=== PATIENT | male | born 1955 | race Hispanic/Latino ===

== ENCOUNTER 2017-10-02 07:11 | Day surgery (SDC) | payer OTHER ==
[~2017-10-02] VITALS: Ht 180.3 cm; Wt 83.2 kg
[~2017-10-02 07:11] MED LIST: AEC81 PO; ATOR40TA71 PO; LEVO125T11 PO; METF500T6 PO; OLOPATADINE OPTH OP; SITA100T12 PO; SODIUM CHLORIDE 0.9% 1000ML 1,000 ML IV ONE
[2017-10-02 07:42] VITALS: BP 110/72
[2017-10-02] MEDS ORDERED: PROPOFOL 10 MG/ML 20ML VIAL IV ONE (10:12)
[2017-10-02 10:31] VITALS: BP 88/44
== END 2017-10-02 11:00 | disposition home or self-care (01) ==
LOC: ENDO 07:11 → DAH 07:11 → ENDO 11:00
PROVIDERS: ATTEND Internal Medicine Gastroenterology
DX: Z12.11 Encounter for screening for malignant neoplasm of colon (principal); E11.9 Type 2 diabetes mellitus without complications; E78.4 Other hyperlipidemia; E03.8 Other specified hypothyroidism; Z85.819 Personal history of malignant neoplasm of unspecified site of lip, oral cavity, and pharynx; Z98.890 Other specified postprocedural states; Z90.49 Acquired absence of other specified parts of digestive tract; Z79.82 Long term (current) use of aspirin; Z79.84 Long term (current) use of oral hypoglycemic drugs; Z79.899 Other long term (current) drug therapy
CPT/HCPCS: 45378; 82948 ×2; A4606; J2704; J7030